=== PATIENT | female | born 1975 | race African-American/Black ===

== ENCOUNTER 2016-04-19 10:59 | Day surgery (SDC) | payer MEDICAID ==
[~2016-04-19] VITALS: Ht 172.7 cm; Wt 115.0 kg
[2016-04-19 12:12] VITALS: BP 128/79
[2016-04-19] MEDS ORDERED: DORZOLAM/TIMOLOL 2.23/0.68% OPHTH DROPS 10ML BOTHEYE SCH (13:15)
[2016-04-19] MEDS ORDERED: LATANOPROST 0.005% OPHTH DROPS 2.5ML BOTHEYE SCH (13:15)
[2016-04-19] MEDS ORDERED: ACETAZOLAMIDE SODIUM 500MG/VIAL IV ONE (13:15)
[2016-04-19] MEDS ORDERED: TRIAMCINOLONE ACETONIDE 40MG/ML 1ML VIAL ONE (13:47)
[2016-04-19] MEDS ORDERED: CIPROFLOXACIN 0.3% OPHTH SOLN 2.5ML ONE (14:13)
[2016-04-19] MEDS ORDERED: PREDNISOLONE ACETATE 1% OPHTH DROPS 1ML ONE (14:13)
[2016-04-19] MEDS ORDERED: NEO/POLYMYX B SULF/DEXAMETH OPHTH OINT 3.5GM ONE (14:13)
[2016-04-19] MEDS ORDERED: BUPIVACAINE HCL/PF 0.75% (7.5MG/ML) 10ML ONE (14:13)
[2016-04-19] MEDS ORDERED: BALANCED SALT IRRIG SOLN 15ML ONE (14:13)
[2016-04-19] MEDS ORDERED: LIDOCAINE HCL/PF 2% 20 MG/ML 10ML VIAL ONE (14:13)
[2016-04-19] MEDS ORDERED: MIDAZOLAM HCL 2 MG/2 ML VIAL ONE ×2 (14:16→14:21)
[2016-04-19] MEDS ORDERED: FENTANYL CITRATE/PF 50MCG/ML 2ML VIAL ONE (14:17)
[2016-04-19] MEDS ORDERED: ONDANSETRON HCL 4MG/2ML VIAL ONE (14:49)
[2016-04-19] MEDS ORDERED: CEFAZOLIN SODIUM 1000MG/VIAL ONE (15:04)
[2016-04-19] MEDS ORDERED: DEXAMETHASONE 4MG/ML 1ML VIAL ONE (15:04)
[2016-04-19] MEDS ORDERED: PROPOFOL 200MG/20ML VIAL IV ONE ×2 (15:15→15:16)
[2016-04-19] MEDS ORDERED: LIDOCAINE HCL 1% 20ML VIAL (Pyxis) INJ ONE (15:16)
[2016-04-19] MEDS ORDERED: ONDANSETRON HCL 4MG/2ML VIAL IV PRN (16:00)
[2016-04-19] MEDS ORDERED: HYDROMORPHONE HCL/PF 2MG/ML CPJ IV PRN (16:00)
== END 2016-04-19 18:27 | disposition home or self-care (01) ==
LOC: ER 12:47 → OR 13:55 → ER 14:00 → OR 18:27
PROVIDERS: ATTEND Ophthalmology
DX: T85.3 Mechanical complication of other ocular prosthetic devices, implants and grafts (principal); H40.9 Unspecified glaucoma; Z94.7 Corneal transplant status; E66.01 Morbid (severe) obesity due to excess calories
CPT/HCPCS: 66180; 67120; 88300; 93005; 96374; 99285; C1783; J0690; J1100; J1120; J2250; J2405; J3010; J3490; J2704; J3301

== ENCOUNTER 2016-04-25 20:01 | Observation (INO) | payer MEDICAID ==
[~2016-04-25] VITALS: Ht 170.2 cm; Wt 106.6 kg
[2016-04-25] MEDS ORDERED: DEXAMETHASONE 4MG/ML 1ML VIAL ONE ×2 (20:46→22:55)
[2016-04-25] MEDS ORDERED: GENTAMICIN SULF 40MG/ML 2ML VIAL ONE (20:46)
[2016-04-25] MEDS ORDERED: FENTANYL CITRATE/PF 50MCG/ML 2ML VIAL ONE (21:41)
[2016-04-25] MEDS ORDERED: MIDAZOLAM HCL 2 MG/2 ML VIAL ONE ×2 (21:41→23:17)
[2016-04-25] MEDS ORDERED: PROPOFOL 200MG/20ML VIAL IV ONE (21:42)
[2016-04-25] MEDS ORDERED: ACETAZOLAMIDE SODIUM 500MG/VIAL IV ONE (22:55)
[2016-04-25] MEDS ORDERED: CEFAZOLIN SODIUM 1000MG/VIAL ONE (22:55)
[2016-04-25] MEDS ORDERED: TRIAMCINOLONE ACETONIDE 40MG/ML 1ML VIAL ONE (23:15)
[2016-04-25] MEDS ORDERED: EPINEPHRINE 1:1000 1 MG/ML AMP ONE (23:22)
[2016-04-26] MEDS ORDERED: HYDROCODONE/ACETAMINOPHEN 5/325MG TABLET PO PRN ×2 (00:15→00:30)
[2016-04-26 02:54] VITALS: BP 105/71
[2016-04-26] MEDS ORDERED: BALANCED SALT IRRIG SOLN 15ML ONE (06:00)
[2016-04-26] MEDS ORDERED: NEO/POLYMYX B SULF/DEXAMETH OPHTH OINT 3.5GM ONE (06:00)
[2016-04-26] MEDS ORDERED: LIDOCAINE HCL 2%/EPINEPHRINE 1:100,000 20 ML VIAL INFIL ONE (06:00)
[2016-04-26] MEDS ORDERED: CIPROFLOXACIN 0.3% OPHTH SOLN 2.5ML ONE (06:00)
[2016-04-26] MEDS ORDERED: BUPIVACAINE HCL/PF 0.75% (7.5MG/ML) 10ML ONE (06:00)
[2016-04-26] MEDS ORDERED: PREDNISOLONE ACETATE 1% OPHTH DROPS 1ML ONE (06:00)
[2016-04-26] MEDS ORDERED: TETRACAINE 0.5% OPHTH DROPS 2ML ONE (06:00)
[2016-04-26 06:22] VITALS: BP 105/71
[2016-04-26 08:00] VITALS: BP 104/61
[2016-04-26 08:36] VITALS: BP 104/61
== END 2016-04-26 10:00 | disposition home or self-care (01) ==
LOC: ER 20:03 → 6EST 04-26 00:15 → INTOOBSV 04-26 00:15
PROVIDERS: ADMIT Ophthalmology; ATTEND Ophthalmology
DX: H40.051 Ocular hypertension, right eye (principal); H21.511 Anterior synechiae (iris), right eye; H25.11 Age-related nuclear cataract, right eye; H40.9 Unspecified glaucoma; H20.9 Unspecified iridocyclitis; H21.501 Unspecified adhesions of iris, right eye; R60.9 Edema, unspecified; Z94.7 Corneal transplant status; Q13.2 Other congenital malformations of iris
CPT/HCPCS: 65870; 65875; 66180; 68200; C1783; G0378; J0171; J0690; J1100; J1120; J2250; J3010; J3301; J3490; 99285; J1580; J2704

== ENCOUNTER 2019-03-22 10:33 | Day surgery (SDC) | payer MEDICAID, MEDICARE ==
[~2019-03-22] VITALS: Ht 170.2 cm; Wt 90.0 kg
[2019-03-22] MEDS ORDERED: SODIUM CHLORIDE 0.9% 1,000 ML IV ONE (10:42)
[2019-03-22] MEDS ORDERED: CIPROFLOXACIN 0.3% OPHTH SOLN 2.5ML ONE (11:42)
[2019-03-22] MEDS ORDERED: LIDOCAINE HCL/PF 2% 20 MG/ML 10ML VIAL ONE (11:42)
[2019-03-22] MEDS ORDERED: BALANCED SALT IRRIG SOLN 15ML ONE (11:42)
[2019-03-22] MEDS ORDERED: TETRACAINE 0.5% OPHTH DROPS 4ML ONE (11:42)
[2019-03-22] MEDS ORDERED: PREDNISOLONE ACETATE 1% OPHTH DROPS 5ML ONE (11:42)
[2019-03-22] MEDS ORDERED: LIDOCAINE HCL 2%/EPINEPHRINE 1:100,000 20 ML VIAL INFIL ONE (11:42)
[2019-03-22] MEDS ORDERED: BUPIVACAINE HCL/PF 0.75% (7.5MG/ML) 10ML ONE (11:42)
[2019-03-22] MEDS ORDERED: ACETAZOLAMIDE SODIUM 500MG/VIAL IV ONE (11:45)
[2019-03-22] MEDS ORDERED: ONDANSETRON HCL 4MG/2ML INJ IV ONE (11:45)
[2019-03-22 12:28] LABS: BASOPHILS % 0.9 % (0.0-2.0); EOSINOPHILS % 3.4 % (0.0-5.0); HEMOGLOBIN. 12.4 g/dL (12.0-16.0); LYMPHOCYTES % 40.2 % (20.0-50.0); MEAN CORPUSCULAR HEMOGLOBIN 32.4 pg (28.0-32.0); MEAN CORPUSCULAR VOLUME 99.1 fL (81.0-99.0); MEAN PLATELET VOLUME 9.5 fl (7.4-10.4); MONOCYTES % 4.8 % (2.0-8.0); NEUTROPHILS % 50.7 % (40.0-76.0); PLATELET 281 x1000/uL (130-400); RED BLOOD CELL COUNT 3.84 mill/uL (4.2-5.4); RED CELL DISTRIBUTION WIDTH 13.3 % (11.6-14.6)
[2019-03-22 12:36] LABS: PARTIAL THROMBOPLASTIN TIME 26.5 sec (23.4-31.0); PROTHROMBIN TIME 10.3 sec (9.6-11.0)
[2019-03-22 12:38] LABS: CHLORIDE 114 mEq/L (98-107)
[2019-03-22 12:49] LABS: HCG SCREEN NEGATIVE
[2019-03-22] MEDS ORDERED: FENTANYL CITRATE/PF 50MCG/ML 2ML VIAL ONE (14:16)
[2019-03-22] MEDS ORDERED: DIPHENHYDRAMINE 50MG/ML VIAL ONE (14:16)
[2019-03-22] MEDS ORDERED: MIDAZOLAM HCL 2 MG/2 ML VIAL ONE (14:16)
[2019-03-22] MEDS ORDERED: LIDOCAINE HCL/PF 1% 10 MG/ML 5ML VIAL ONE (14:19)
[2019-03-22] MEDS ORDERED: HYDROMORPHONE HCL/PF 2MG/ML CPJ ONE (14:30)
[2019-03-22] MEDS ORDERED: NEOMY SULF/BACITRAC ZN/POLY/HC 1 APP TUBE ONE (14:30)
[2019-03-22] MEDS ORDERED: PROPOFOL 200MG/20ML VIAL IV ONE (14:37)
[2019-03-22] MEDS ORDERED: HYDROMORPHONE HCL/PF 2MG/ML CPJ IV PRN (15:30)
[2019-03-22 17:18] VITALS: BP 117/74
== END 2019-03-22 17:50 | disposition home or self-care (01) ==
LOC: ER 10:40 → OR 12:52 → ER 12:52 → OR 17:50
PROVIDERS: ATTEND Ophthalmology
DX: H40.89 Other specified glaucoma (principal); Z98.890 Other specified postprocedural states; Z98.891 History of uterine scar from previous surgery; Z72.89 Other problems related to lifestyle
CPT/HCPCS: 36415; 66180; 80053; 81025; 84703; 85025; 85610; 85730; 93005; 99284; C1783; J1120; J1170; J1200; J2250; J2405; J3010; J3490; J7030; 96374; 96375; J2704